=== PATIENT | male | born 1940 | race Caucasian/White ===

== ENCOUNTER 2017-06-05 11:54 | Observation (INO) | payer OTHER ==
[~2017-06-05 11:54] MED LIST: ASPI81TA11 PO; CRES20TA PO; DABI150 PO; METO25 PO; NORC7.5T PO
[2017-06-05 12:03] VITALS: BP 159/47; PULSE 59; RESP 16; TEMP 98.2; O2SAT 98
[2017-06-05 13:01] LABS: BASOPHIL # 0.1 TH/MM3 (0-0.2); BASOPHIL % 0.5 % (0.0-2.0); EOSINOPHIL # 0.2 TH/MM3 (0-0.4); EOSINOPHIL % 1.9 % (0.0-4.0); HEMOGLOBIN 14.8 GM/DL (13.0-17.0); LYMPH % 31.5 % (9.0-44.0); LYMPHOCYTE # 2.9 TH/MM3 (1.0-4.8); MEAN CELL VOLUME 88.4 FL (80.0-100.0); MEAN CORPUSCULAR HEMOGLOBIN 30.3 PG (27.0-34.0); MEAN CORPUSCULAR HGB CONC 34.3 % (32.0-36.0); MEAN PLATELET VOLUME 8.9 FL (7.0-11.0); MONO % 12.1 % (0.0-8.0); MONOCYTE # 1.1 TH/MM3 (0-0.9); PLATELET COUNT 204 TH/MM3 (150-450); RED BLOOD COUNT 4.86 MIL/MM3 (4.50-5.90); WHITE BLOOD COUNT 9.3 TH/MM3 (4.0-11.0)
--- NOTE | 2017-06-05 13:03 | RADRPT ---
EXAM DATE/TIME: 06/05/2017 12:26 [facility] COMPARISON: No previous studies available for comparison. INDICATIONS : Chest pain and dizziness. MEDICAL HISTORY : High blood pressure SURGICAL HISTORY : Triple bypass. ENCOUNTER: Initial ACUITY: 1 day PAIN SCORE: 2/10 LOCATION: Bilateral chest FINDINGS: PA and lateral views of the chest demonstrate postoperative median sternotomy. Tortuous aorta. Previo us right shoulder joint replacement. Minimal basal atelectasis or scarring. CONCLUSION: 1. No active disease. Tevin Vazquez MD on June 05, 2017 at 12:59 Board Certified Radiologist. This report was verified electronically.
--- NOTE | 2017-06-05 13:20 | PD ---
HPI Chief Complaint: Cardiac Complaint Time Seen by Provider: 12:25 Travel History International Travel<30 days: No Contact w/Intl Traveler<30days: No Traveled to known affect area: No History of Present Illness HPI Patient is a 76-year-old male presenting to the emergency department for evaluation of headache, blurry vision, chest pain. Patient states at approximately 1045 this morning he was at the [place] [facility] at a seminar when he developed an abrupt onset of blurry vision, headache which he states was behind his right eye. He also reported a brief episode of chest pain. He does have a history of angina but did not take any nitroglycerin. He denies any shortness of breath, diaphoresis, nausea, vomiting, abdominal pain. Symptom onset was sudden, symptoms severity was moderate, symptoms currently are resolved. Past medical history significant for angina, hypertension, hyperlipidemia. Patient denies any alcohol use or tobacco use. PFSH Past Medical History Hx Anticoagulant Therapy: Yes Arthritis: Yes Atrial Fibrillation: Yes Heart Rhythm Problems: Yes Cardiac Catheterization: Yes Cardiovascular Problems: Yes High Cholesterol: Yes Chest Pain: Yes Coronary Artery Disease: Yes Diminished Hearing: Yes (BILATERAL HEARING AIDES) GERD: Yes Hypertension: Yes Kidney Stones: Yes Musculoskeletal: Yes (BACK ) Immunizations Current: Yes Pneumonia: Yes Past Surgical History Abdominal Surgery: Yes (RIGHT INGUINAL) Cardiac Surgery: Yes (RF ABLATION) Coronary Artery Bypass Graft: Yes (X3 IN 2005) Coronary Stent: Yes (X2) Tonsillectomy: Yes Tympanostomy Tube: Yes Other Surgery: Yes (penile implant 09/14/2015) Social History Alcohol Use: No Tobacco Use: No Substance Use: No Allergies-Medications (Allergen,Severity, Reaction): Coded Allergies: Sulfa (Sulfonamide Antibiotics) (Unverified Allergy, Severe, RASH, 11/11/16 ) Reported Meds & Prescriptions Reported Meds & Active Scripts Active Browning 7.5-325 mg (Hydrocodone-Acetaminophen 7.5-325 mg) 1 Tab 1 Tab PO Q6H PRN Reported Aspirin EC 81 mg (Aspirin) 81 Mg Tab 81 Mg PO DAILY Crestor (Rosuvastatin Calcium) 20 Mg Tab 10 Mg PO DAILY Pradaxa 150 Mg Cap (Dabigatran) 150 Mg Cap 150 Mg PO BID Metoprolol Tartrate 25 mg (Metoprolol Tartrate) 25 Mg Tab 12.5 Mg PO BID Review of Systems Except as stated in HPI: all other systems reviewed are Neg Eyes: Positive: Blurred Vision HENT: Positive: Headaches Cardiovascular: Positive: Chest Pain or Discomfort Respiratory: No: Shortness of Breath Gastrointestinal: No: Nausea, Abdominal Pain Physical Exam Narrative GENERAL: Well-developed, well-nourished, alert male. Presenting in no acute distress. SKIN: Warm and dry. HEAD: Atraumatic. Normocephalic. EYES: Pupils equal and round. No scleral icterus. No injection or drainage. ENT: No nasal bleeding or discharge. Mucous membranes pink and moist. NECK: Trachea midline. No JVD. CARDIOVASCULAR: Regular rate and irregular rhythm. RESPIRATORY: No accessory muscle use. Clear to auscultation. Breath sounds equal bilaterally. GASTROINTESTINAL: Abdomen soft, non-tender, nondistended. Hepatic and splenic margins not palpable. MUSCULOSKELETAL: Extremities without clubbing, cyanosis, or edema. No obvious deformities. NEUROLOGICAL: Awake and alert. No obvious cranial nerve deficits. Motor grossly within normal limits. Five out of 5 muscle strength in the arms and legs. Normal speech. PSYCHIATRIC: Appropriate mood and affect; insight and judgment normal. Data Data Last Documented VS Vital Signs Date Time Temp Pulse Resp B/P (MAP) Pulse Ox O2 Delivery O2 Flow Rate FiO2 06/05/17 12:03 98.2 59 16 159/47 (84) 98 Orders Orders Electrocardiogram (06/05/17 12:11) Complete Blood Count With Diff (06/05/17 12:11) Basic Metabolic Panel (Bmp) (06/05/17 12:11) Ckmb (Isoenzyme) Profile (06/05/17 12:11) Troponin I (06/05/17 12:11) Iv Access Insert/Monitor (06/05/17 12:11) Ecg Monitoring (06/05/17 12:11) Oxygen Administration (06/05/17 12:11) Oximetry (06/05/17 12:11) Act Partial Throm Time (Ptt) (06/05/17 12:11) Prothrombin Time / Inr (Pt) (06/05/17 12:11) Chest, Pa & Lat (06/05/17 12:11) Ct Brain W/O Iv Contrast(Rout) (06/05/17 ) Hepatic Functional Panel (06/05/17 12:30) Lipase (06/05/17 12:30) Admit Order (Ed Use Only) (06/05/17 15:24) Labs Laboratory Tests Test 06/05/17 12:30 06/05/17 13:20 White Blood Count 9.3 TH/MM3 Red Blood Count 4.86 MIL/MM3 Hemoglobin 14.8 GM/DL Hematocrit 43.0 % Mean Corpuscular Volume 88.4 FL Mean Corpuscular Hemoglobin 30.3 PG Mean Corpuscular Hemoglobin Concent 34.3 % Red Cell Distribution Width 14.0 % Platelet Count 204 TH/MM3 Mean Platelet Volume 8.9 FL Neutrophils (%) (Auto) 54.0 % Lymphocytes (%) (Auto) 31.5 % Monocytes (%) (Auto) 12.1 % Eosinophils (%) (Auto) 1.9 % Basophils (%) (Auto) 0.5 % Neutrophils # (Auto) 5.0 TH/MM3 Lymphocytes # (Auto) 2.9 TH/MM3 Monocytes # (Auto) 1.1 TH/MM3 Eosinophils # (Auto) 0.2 TH/MM3 Basophils # (Auto) 0.1 TH/MM3 CBC Comment DIFF FINAL Differential Comment Prothrombin Time 13.5 SEC Prothromb Time International Ratio 1.3 RATIO Activated Partial Thromboplast Time 40.1 SEC Blood Urea Nitrogen 13 MG/DL Creatinine 0.82 MG/DL Random Glucose 75 MG/DL Total Protein 7.1 GM/DL Albumin 3.3 GM/DL Calcium Level 8.4 MG/DL Alkaline Phosphatase 91 U/L Aspartate Amino Transf (AST/SGOT) 20 U/L Alanine Aminotransferase (ALT/SGPT) 23 U/L Total Bilirubin 0.9 MG/DL Direct Bilirubin 0.2 MG/DL Sodium Level 140 MEQ/L Potassium Level 4.3 MEQ/L Chloride Level 105 MEQ/L Carbon Dioxide Level 27.7 MEQ/L Anion Gap 7 MEQ/L Estimat Glomerular Filtration Rate 92 ML/MIN Indirect Bilirubin 0.7 MG/DL Total Creatine Kinase 65 U/L Troponin I LESS THAN 0.02 NG/ML Lipase 119 U/L MDM Medical Decision Making Medical Screen Exam Complete: Yes Emergency Medical Condition: Yes Interpretation(s) Laboratory Tests Test 06/05/17 12:30 06/05/17 13:20 White Blood Count 9.3 TH/MM3 Red Blood Count 4.86 MIL/MM3 Hemoglobin 14.8 GM/DL Hematocrit 43.0 % Mean Corpuscular Volume 88.4 FL Mean Corpuscular Hemoglobin 30.3 PG Mean Corpuscular Hemoglobin Concent 34.3 % Red Cell Distribution Width 14.0 % Platelet Count 204 TH/MM3 Mean Platelet Volume 8.9 FL Neutrophils (%) (Auto) 54.0 % Lymphocytes (%) (Auto) 31.5 % Monocytes (%) (Auto) 12.1 % Eosinophils (%) (Auto) 1.9 % Basophils (%) (Auto) 0.5 % Neutrophils # (Auto) 5.0 TH/MM3 Lymphocytes # (Auto) 2.9 TH/MM3 Monocytes # (Auto) 1.1 TH/MM3 Eosinophils # (Auto) 0.2 TH/MM3 Basophils # (Auto) 0.1 TH/MM3 CBC Comment DIFF FINAL Differential Comment Prothrombin Time 13.5 SEC Prothromb Time International Ratio 1.3 RATIO Activated Partial Thromboplast Time 40.1 SEC Blood Urea Nitrogen 13 MG/DL Creatinine 0.82 MG/DL Random Glucose 75 MG/DL Total Protein 7.1 GM/DL Albumin 3.3 GM/DL Calcium Level 8.4 MG/DL Alkaline Phosphatase 91 U/L Aspartate Amino Transf (AST/SGOT) 20 U/L Alanine Aminotransferase (ALT/SGPT) 23 U/L Total Bilirubin 0.9 MG/DL Direct Bilirubin 0.2 MG/DL Sodium Level 140 MEQ/L Potassium Level 4.3 MEQ/L Chloride Level 105 MEQ/L Carbon Dioxide Level 27.7 MEQ/L Anion Gap 7 MEQ/L Estimat Glomerular Filtration Rate 92 ML/MIN Indirect Bilirubin 0.7 MG/DL Total Creatine Kinase 65 U/L Troponin I LESS THAN 0.02 NG/ML Lipase 119 U/L Vital Signs Date Time Temp Pulse Resp B/P (MAP) Pulse Ox O2 Delivery O2 Flow Rate FiO2 06/05/17 12:03 98.2 59 16 159/47 (84) 98 Vital Signs Date Time Temp Pulse Resp B/P (MAP) Pulse Ox O2 Delivery O2 Flow Rate FiO2 06/05/17 12:03 98.2 59 16 159/47 (84) 98 Differential Diagnosis [place] versus ACS versus TIA versus CVA versus other Narrative Course Patient is a 76-year-old male presenting for evaluation of possible TIA/chest pain. Patient's vital signs are stable. Initial EKG shows sinus bradycardia with a rate of 59 with occasional PVCs. Patient no focal deficits on exam at this time. Labs and imaging ordered and pending. CT the brain is negative for acute findings CBC is unremarkable Chemistry with no acute findings Cardiac enzymes are negative 1 set Chest x-ray shows no acute disease Discussed findings and my attending physician. Symptomology appears consistent with a TIA, patient will be admitted under observation. Discussed with Dr. Umana who accepted admit. Admit orders placed. Patient is agreeable. Diagnosis Primary Impression: TIA (transient ischemic attack) Qualified Codes: G45.9 - Transient cerebral ischemic attack, unspecified Admitting Information Admitting Physician Requests: Observation Condition: Stable Bridgett Mendez Jun 05, 2017 13:20
[2017-06-05 13:49] LABS: INTERNATIONAL NORMALIZED RATIO 1.3 RATIO; PROTHROMBIN TIME - PATIENT 13.5 SEC (9.8-11.6)
[2017-06-05 13:59] LABS: ALBUMIN 3.3 GM/DL (3.4-5.0); AST (GOT) 20 U/L (15-37); BICARBONATE 27.7 MEQ/L (21.0-32.0); BLOOD UREA NITROGEN 13 MG/DL (7-18); CALCIUM 8.4 MG/DL (8.5-10.1); CHLORIDE 105 MEQ/L (98-107); CREATININE 0.82 MG/DL (0.60-1.30); GLOMERULAR FILTRATION RATE 92 ML/MIN (>89); GLUCOSE,RANDOM 75 MG/DL (74-106); SODIUM (NA) 140 MEQ/L (136-145)
[2017-06-05 14:04] LABS: ALKALINE PHOSPHATASE 91 U/L (45-117); ALT (GPT) 23 U/L (12-78); DIRECT BILIRUBIN ADULT 0.2 MG/DL (0.0-0.2); INDIRECT BILIRUBIN 0.7 MG/DL (0.0-0.8); TOTAL BILIRUBIN ADULT 0.9 MG/DL (0.2-1.0); TOTAL PROTEIN 7.1 GM/DL (6.4-8.2); TROPONIN I LESS THAN 0.02 NG/ML (0.02-0.05)
--- NOTE | 2017-06-05 14:31 | RADRPT ---
EXAM DATE/TIME: 06/05/2017 13:56 [facility] COMPARISON: No previous studies available for comparison. INDICATIONS : Dizziness, blurred vision and hypertension. RADIATION DOSE: 56.35 CTDIvol (mGy) MEDICAL HISTORY : Cardiovascular disease. Hypertension. SURGICAL HISTORY : CABG ENCOUNTER: Initial ACUITY: 1 day PAIN SCALE: 0/10 LOCATION: cranial TECHNIQUE: Multiple contiguous axial images were obtained of the head. Using automated exposure control and adj ustment of the mA and/or kV according to patient size, radiation dose was kept as low as reasonably a chievable to obtain optimal diagnostic quality images. DICOM format image data is available electro nically for review and comparison. FINDINGS: CEREBRUM: The ventricles are normal for age. No evidence of midline shift, mass lesion, hemorrhage or acute in farction. No extra-axial fluid collections are seen. POSTERIOR FOSSA: The cerebellum and brainstem are intact. The 4th ventricle is midline. The cerebellopontine angle i s unremarkable. EXTRACRANIAL: The visualized portion of the orbits is intact. SKULL: The calvaria is intact. No evidence of skull fracture. CONCLUSION: Negative for acute process Андрей Peugero MD FACR on June 05, 2017 at 14:29 Board Certified Radiologist. This report was verified electronically.
[2017-06-05] MEDS ORDERED: GLUCAGON 1 MG/ML VIAL OTHER PRN (16:00)
[2017-06-05] MEDS ORDERED: ACETAMINOPHEN/HYDROcodone 325 MG/7.5 MG TAB PO PRN (16:00)
[2017-06-05] MEDS ORDERED: SODIUM CHLORIDE 0.9% FLUSH 10 ML FLUSH IV FLUSH PRN (16:00)
[2017-06-05] MEDS ORDERED: ENOXAPARIN SODIUM 40 MG/0.4 ML SYRINGE SQ SCH (16:00)
[2017-06-05] MEDS ORDERED: DEXTROSE 50% IN WATER 50 ML VIAL(D50) IV PUSH PRN (16:00)
[2017-06-05] MEDS: INSULIN ASPART SUPPLEMENTAL SCALE SQ SCH ×2 (16:55→21:00)
[2017-06-05 17:00] VITALS: BP 168/87; PULSE 65; RESP 18; TEMP 97; O2SAT 100
--- NOTE | 2017-06-05 17:08 | HHI.HP ---
HPI Service [facility] Hospitalists Primary Care Physician [facility] Admission Diagnosis TIA Diagnoses: Chief Complaint: Blurry vision Headache Pain behind his eyes Travel History International Travel<30 Days: No Contact w/Intl Traveler <30 Da: No Traveled to Known Affected Are: No History of Present Illness Written by Martine Saeed, acting as scribe for Dr. Umana on 06/05/17 at 17:07. This is a 76yo male with PMHX of CAD s/p CABG, HTN, atrial fibrillation, HLD and GERD who presents to [facility] ED with complaints of blurry vision, headache and pain behind his eyes x 1 day. Patient [place] when he developed sudden onset of blurry vision and pain behind his eyes. After about 20minutes, he got up and experienced difficulty with ambulation, staggering and stumbling around "like he was drunk". His blood pressure was 180/102. He reports brief episode of chest pain. He denies any associated shortness of breath, diaphoresis, nausea, vomiting or abdominal pain. He reports increased stress at home due to financial issues and relationship problems. Patient states his symptoms have now resolved. He denies any complaints of blurry vision. Denies any headaches. He denies any difficulty swallowing. He is very focused on getting something to eat. Review of Systems Except as stated in HPI: all other systems reviewed are Neg Past Family Social History Past Medical History Hypertension Atrial fibrillation CAD s/p CABG Dyslipidemia GERD Hx of Kidney stones Past Surgical History CABG x 3, 2005 cardiac stents Bilateral shoulder replacements Cardiac ablation Tonsillectomy Cardiac stents Penile implant 2016 Right inguinal hernia repair Reported Medications Reported Meds & Active Scripts Active Walton 7.5-325 mg (Hydrocodone-Acetaminophen 7.5-325 mg) 1 Tab 1 Tab PO Q6H PRN Reported Aspirin EC 81 mg (Aspirin) 81 Mg Tab 81 Mg PO DAILY Crestor (Rosuvastatin Calcium) 20 Mg Tab 10 Mg PO DAILY Pradaxa 150 Mg Cap (Dabigatran) 150 Mg Cap 150 Mg PO BID Metoprolol Tartrate 25 mg (Metoprolol Tartrate) 25 Mg Tab 12.5 Mg PO BID Allergies: Coded Allergies: Sulfa (Sulfonamide Antibiotics) (Unverified Allergy, Severe, RASH, 11/11/16 ) Active Ordered Medications Current Medications Medications (Trade) Dose Ordered Sig/Stephanie Route Start Time Stop Time Status Last Admin (NS Flush) 2 ml BID IV FLUSH 06/05/17 21:00 (NS Flush) 2 ml UNSCH PRN IV FLUSH 06/05/17 16:00 (Lipitor) 10 mg HS PO 06/05/17 21:00 (NovoLOG SUPPLEMENTAL SCALE) 1 ACHS SQ 06/05/17 17:00 (D50w (Vial) Inj) 50 ml UNSCH PRN IV PUSH 06/05/17 16:00 (Glucagon Inj) 1 mg UNSCH PRN OTHER 06/05/17 16:00 (Lovenox Inj) 40 mg Q24H SQ 06/05/17 16:00 06/05/17 16:56 (Ecotrin Ec) 81 mg DAILY PO 06/06/17 09:00 UNV (Pradaxa) 150 mg BID PO 06/05/17 21:00 UNV (Walton 7.5-325 Mg) 1 tab Q6H PRN PO 06/05/17 16:00 UNV (Lopressor) 12.5 mg BID PO 06/05/17 21:00 UNV Non-Formulary Medication 10 mg DAILY PO 06/06/17 09:00 UNV Family History Dad, [place] x 4 Mother, CAD, CABG x 4 2 uncles, stroke Social History Patient denies any tobacco use, alcohol consumption or illicit drug use. Physical Exam Vital Signs Vital Signs Date Time Temp Pulse Resp B/P (MAP) Pulse Ox O2 Delivery O2 Flow Rate FiO2 06/05/17 12:03 98.2 59 16 159/47 (84) 98 Physical Exam GENERAL: This is a well-nourished, well-developed male patient, in no apparent distress. Awake and alert. SKIN: No rashes, ecchymoses or lesions. Cool and dry. HEAD: Atraumatic. Normocephalic. No temporal or scalp tenderness. EYES: Pupils equal round and reactive. Extraocular motions intact. No scleral icterus. No injection or drainage. ENT: Nose without bleeding or purulent drainage. Throat without erythema, tonsillar hypertrophy or exudate. Uvula midline. Airway patent. NECK: Trachea midline. No lymphadenopathy. Supple, nontender, no meningeal signs. CARDIOVASCULAR: Regular rate and rhythm without murmurs, gallops, or rubs. RESPIRATORY: Clear to auscultation. Breath sounds equal bilaterally. No wheezes , rales, or rhonchi. GASTROINTESTINAL: Abdomen soft, non-tender, nondistended. No hepato-splenomegaly , or palpable masses. No guarding. MUSCULOSKELETAL: Extremities without clubbing, cyanosis, or edema. No joint tenderness, effusion, or edema noted. No calf tenderness. NEUROLOGICAL: Awake and alert. Cranial nerves II through XII intact. Motor and sensory grossly within normal limits. Five out of 5 muscle strength in all muscle groups. Normal speech. Laboratory Laboratory Tests Test 06/05/17 12:30 06/05/17 13:20 White Blood Count 9.3 Red Blood Count 4.86 Hemoglobin 14.8 Hematocrit 43.0 Mean Corpuscular Volume 88.4 Mean Corpuscular Hemoglobin 30.3 Mean Corpuscular Hemoglobin Concent 34.3 Red Cell Distribution Width 14.0 Platelet Count 204 Mean Platelet Volume 8.9 Neutrophils (%) (Auto) 54.0 Lymphocytes (%) (Auto) 31.5 Monocytes (%) (Auto) 12.1 Eosinophils (%) (Auto) 1.9 Basophils (%) (Auto) 0.5 Neutrophils # (Auto) 5.0 Lymphocytes # (Auto) 2.9 Monocytes # (Auto) 1.1 Eosinophils # (Auto) 0.2 Basophils # (Auto) 0.1 CBC Comment DIFF FINAL Differential Comment Prothrombin Time 13.5 Prothromb Time International Ratio 1.3 Activated Partial Thromboplast Time 40.1 Blood Urea Nitrogen 13 Creatinine 0.82 Random Glucose 75 Total Protein 7.1 Albumin 3.3 Calcium Level 8.4 Alkaline Phosphatase 91 Aspartate Amino Transf (AST/SGOT) 20 Alanine Aminotransferase (ALT/SGPT) 23 Total Bilirubin 0.9 Direct Bilirubin 0.2 Sodium Level 140 Potassium Level 4.3 Chloride Level 105 Carbon Dioxide Level 27.7 Anion Gap 7 Estimat Glomerular Filtration Rate 92 Indirect Bilirubin 0.7 Total Creatine Kinase 65 Troponin I LESS THAN 0.02 Lipase 119 Result Diagram: 06/05/17 1230 06/05/17 1320 Imaging Last Impressions Chest X-Ray 06/05/17 1211 Signed Impressions: Service Date/Time: Monday, June 05, 2017 12:26 - CONCLUSION: 1. No active disease. Tevin Vazquez MD Head CT 06/05/17 0000 Signed Impressions: Service Date/Time: Monday, June 05, 2017 13:56 - CONCLUSION: Negative for acute process Андрей Peguero MD FACR Caprini VTE Risk Assessment Caprini VTE Risk Assessment: Mod/High Risk (score >= 2) Caprini Risk Assessment Model Point Value = 1 Point Value = 2 Point Value = 3 Point Value = 5 Age 41-60 Minor surgery BMI > 25 kg/m2 Swollen legs Varicose veins or History of unexplained or recurrent spontaneous Oral contraceptives or hormone replacement Sepsis (< 1 month) Serious lung disease, including pneumonia (< 1 month) Abnormal pulmonary function Acute myocardial infarction Congestive heart failure (< 1 month) History of inflammatory bowel disease Medical patient at bed rest Age 61-74 Arthroscopic surgery Major open surgery (> 45 min) Laparoscopic surgery (> 45 min) Malignancy Confined to bed (> 72 hours) Immobilizing plaster cast Central venous access Age >= 75 History of VTE Family history of VTE Factor V Leiden Prothrombin [id number] Lupus anticoagulant Anticardiolipin antibodies Elevated serum homocysteine Heparin-induced thrombocytopenia Other congenital or acquired thrombophilia Stroke (< 1 month) Elective arthroplasty Hip, pelvis, or leg fracture Acute spinal cord injury (< 1 month) Prophylaxis Regimen Total Risk Factor Score Risk Level Prophylaxis Regimen 0-1 Low Early ambulation 2 Moderate Order ONE of the following: *Sequential Compression Device (SCD) *Heparin 5000 units SQ BID 3-4 Higher Order ONE of the following medications: *Heparin 5000 units SQ TID *Enoxaparin/Lovenox 40 mg SQ daily (WT < 150 kg, CrCl > 30 mL/min) *Enoxaparin/Lovenox 30 mg SQ daily (WT < 150 kg, CrCl > 10-29 mL/min) *Enoxaparin/Lovenox 30 mg SQ BID (WT < 150 kg, CrCl > 30 mL/min) AND/OR *Sequential Compression Device (SCD) 5 or more Highest Order ONE of the following medications: *Heparin 5000 units SQ TID (Preferred with Epidurals) *Enoxaparin/Lovenox 40 mg SQ daily (WT < 150 kg, CrCl > 30 mL/min) *Enoxaparin/Lovenox 30 mg SQ daily (WT < 150 kg, CrCl > 10-29 mL/min) *Enoxaparin/Lovenox 30 mg SQ BID (WT < 150 kg, CrCl > 30 mL/min) AND *Sequential Compression Device (SCD) Assessment and Plan Assessment and Plan 76yo male with PMHX of CAD s/p CABG, HTN, atrial fibrillation, HLD and GERD who presents to [facility] ED with complaints of blurry vision, headache, unsteady gait and pain behind his eyes x 1 day. TIA -CT brain for acute findings, images reviewed by me -Consult stroke navigator -Continuous cardiac monitoring -Aspirin and statin therapy daily -Neuro checks -PT/OT eval/tx -Nursing bedside swallow evaluation -blood sugar monitoring -obtain lipid profile and hemoglobin A1c -Holter monitor -MRI brain and carotid US ordered -Obtain 2-D echocardiogram Chest pain Hx of CAD s/p CABG -EKG shows sinus bradycardia with occasional PVCs -initial troponin 0.02, continue to trend Rafaela -CXR shows no acute disease, images reviewed by me -continuous cardiac monitoring HTN, [facility] -improved -resume home BB -monitor BP and adjust treatment accordingly Atrial fibrillation Rate controlled -Resume home dose of Pradaxa 150 mg twice a day and metoprolol 12.5 mg twice a day -Continue to monitor heart rate DVT prophylaxis -Lovenox subcutaneous This note was transcribed by ANDREW Urena . I, Dr. lIa Umana personally performed the history, physical exam, and medical decision making; and confirmed the accuracy of the information in the transcribed note. Authenticated by Dr. Ila Umana on 06/05/17 at 17:07. Discussed Condition With ED physician, nursing staff, patient Martine Saeed Jun 05, 2017 17:08 Ila Umana MD Jun 05, 2017 18:02
[2017-06-05] MEDS ORDERED: METO25TA3 PO (17:12)
[2017-06-05 20:00] VITALS: BP 149/85; PULSE 53; PULSE 68; PULSE 79; RESP 20; TEMP 98.4; O2SAT 97
[2017-06-05] MEDS: ATORVASTATIN 10 MG TAB PO SCH (21:00)
[2017-06-05] MEDS: METOPROLOL TARTRATE 25 MG TAB PO SCH (21:31)
[2017-06-05] MEDS: SODIUM CHLORIDE 0.9% FLUSH 10 ML FLUSH IV FLUSH SCH (21:32)
[2017-06-05 21:51] VITALS: BP 155/82; PULSE 72; RESP 18; TEMP 98.4; O2SAT 99
--- NOTE | 2017-06-05 22:08 | RADRPT ---
EXAM DATE/TIME: 06/05/2017 21:01 [facility] COMPARISON: No previous studies available for comparison. INDICATIONS : Cerebrovascular accident. MEDICAL HISTORY : Hypercholesterolemia. Hypertension. Gastroesophageal reflux disease. Hearing loss. Coronary artery di sease. Anticoagulant therapy. Afib. Pneumonia. Sleep apnea. Kidney stones. Arthritis. Substance use. SURGICAL HISTORY : Tonsillectomy. CABG. Coronary artery stent. Tympanostomy tube. Cardiac ablation. Right inguinal herni a repair. Bilateral hip replacements.. Bilateral shoulder surgery. Penile implant. ENCOUNTER: Initial ACUITY: 1 day PAIN SCORE: 0/10 LOCATION: Bilateral neck PEAK SYSTOLIC VELOCITIES (cm/sec): ICA/CCA RATIO: Right: 1.2 Left: 0.7 ICA: Right: 91 Left: 69 CCA: Right: 76 Left: 97 ECA: Right: 116 Left: 78 VERTEBRAL: Right: 32 antegrade Left: 39 antegrade Elevated flow velocities and ICA/CCA ratios have been found to correlate with increased degrees of vessel stenosis, calculated as percentage of diameter relative to a normal segment of distal ICA/CCA FINDINGS: RIGHT CAROTID: Prominent calcified plaque in the distal common carotid and carotid bulb.. The waveforms are within normal limits. LEFT CAROTID: Mild calcified plaque in the distal common carotid artery. No significant stenosis is visualized. T he waveforms are within normal limits. VERTEBRAL ARTERIES: Antegrade flow is seen in both vertebral arteries. MISCELLANEOUS: None. CONCLUSION: Bilateral calcified carotid plaques with hemodynamic profile characteristic of less than 50% stenosis . Valerio Judd MD on June 05, 2017 at 22:04 Board Certified Radiologist. This report was verified electronically.
[2017-06-05] MEDS: DABIGATRAN ETEXILATE 150 MG CAP PO SCH (22:30)
[2017-06-05 22:47] LABS: HEMOGLOBIN A1C 5.8 % (4.3-6.0)
[2017-06-05 23:56] VITALS: BP 126/78; PULSE 62; RESP 18; TEMP 98.2; O2SAT 95
[2017-06-06] VITALS (8 sets, daily range): BP systolic 134–170; BP diastolic 77–102; PULSE 56–73; RESP 18; TEMP 96.7–98.4; O2SAT 96–98
[2017-06-06 02:54] LABS: AUTOMATED NEUTROPHIL # 2.8 TH/MM3 (1.8-7.7); BASOPHIL % 0.7 % (0.0-2.0); EOSINOPHIL # 0.2 TH/MM3 (0-0.4); EOSINOPHIL % 2.9 % (0.0-4.0); HEMATOCRIT 40.4 % (39.0-51.0); HEMOGLOBIN 13.9 GM/DL (13.0-17.0); LYMPH % 35.7 % (9.0-44.0); LYMPHOCYTE # 2.1 TH/MM3 (1.0-4.8); MEAN CELL VOLUME 87.5 FL (80.0-100.0); MEAN CORPUSCULAR HEMOGLOBIN 30.1 PG (27.0-34.0); MEAN CORPUSCULAR HGB CONC 34.4 % (32.0-36.0); MEAN PLATELET VOLUME 8.7 FL (7.0-11.0); MONO % 11.9 % (0.0-8.0); MONOCYTE # 0.7 TH/MM3 (0-0.9); NEUT % 48.8 % (16.0-70.0); PLATELET COUNT 165 TH/MM3 (150-450); RED BLOOD COUNT 4.61 MIL/MM3 (4.50-5.90); RED CELL DISTRIBUTION WIDTH 13.9 % (11.6-17.2); WHITE BLOOD COUNT 5.8 TH/MM3 (4.0-11.0)
[2017-06-06 03:10] LABS: BICARBONATE 32.6 MEQ/L (21.0-32.0); BLOOD UREA NITROGEN 14 MG/DL (7-18); CALCIUM 8.6 MG/DL (8.5-10.1); CHLORIDE 104 MEQ/L (98-107); CHOLESTEROL 93 MG/DL (120-200); CREATININE 0.94 MG/DL (0.60-1.30); GLOMERULAR FILTRATION RATE 78 ML/MIN (>89); GLUCOSE,RANDOM 80 MG/DL (74-106); SODIUM (NA) 142 MEQ/L (136-145); TRIGLYCERIDES 84 MG/DL (42-150)
[2017-06-06 03:13] LABS: CHOLESTEROL/ HDL RATIO 2.69 RATIO; HDL CHOLESTEROL 34.5 MG/DL (40.0-60.0); LDL CHOLESTEROL 42 MG/DL (0-99); TROPONIN I LESS THAN 0.02 NG/ML (0.02-0.05)
[2017-06-06] MEDS: INSULIN ASPART SUPPLEMENTAL SCALE SQ SCH ×4 (08:00→21:00)
--- NOTE | 2017-06-06 08:51 | RADRPT ---
EXAM DATE/TIME: 06/06/2017 08:03 [facility] COMPARISON: No previous studies available for comparison. INDICATIONS : Aphasia. Blurred vision. MEDICAL HISTORY : Hypertension. SURGICAL HISTORY : CABG Cardiac ablation. Bilateral hip replacement.Right shoulder replacement. ENCOUNTER: Initial ACUITY: 2 day PAIN SCORE: 0/10 LOCATION: cranial TECHNIQUE: Multiplanar, multisequence MRI of the brain was performed without contrast. FINDINGS: CEREBRUM: The ventricles are normal for age. No evidence of midline shift, mass lesion, hemorrhage or acute in farction. No extraaxial fluid collections are seen. The pituitary gland and suprasellar cistern are normal in configuration. WHITE MATTER: Moderate signal abnormalities are seen in the white matter. POSTERIOR FOSSA: The cerebellum and brainstem are intact. The 4th ventricle is midline. The cerebellopontine angle is unremarkable. The cerebellar tonsils are normal in position. DIFFUSION IMAGING: No focal areas of restricted diffusion are seen. No evidence of acute infarction. EXTRACRANIAL: The visualized portions of the orbits and paranasal sinuses are unremarkable. CONCLUSION: 1. Moderate T2 hyperintense changes throughout the cerebral white matter characteristic of chronic mi crovascular ischemic disease. 2. No evidence of acute infarct, hemorrhage, mass or edema. Nikunj Yañez MD on June 06, 2017 at 8:46 Board Certified Radiologist. This report was verified electronically.
[2017-06-06] MEDS ORDERED: ASPIRIN 81 MG CHEW TAB PO SCH (09:00)
[2017-06-06] MEDS: DABIGATRAN ETEXILATE 150 MG CAP PO SCH (10:13)
[2017-06-06] MEDS: ATORVASTATIN 20 MG TAB PO SCH (10:14)
[2017-06-06] MEDS: ASPIRIN EC 81 MG TABEC PO SCH (10:14)
[2017-06-06] MEDS: METOPROLOL TARTRATE 25 MG TAB PO SCH (10:14)
[2017-06-06] MEDS: SODIUM CHLORIDE 0.9% FLUSH 10 ML FLUSH IV FLUSH SCH (10:15)
--- NOTE | 2017-06-06 10:54 | HHI.PR ---
Subjective Remarks F/u TIA. Patient with no complaints. Symptoms resolved. He adds that he was off Pradaxa for 1 week just restarted it 3 days ago after a bout of hematochezia was seen in the ED and told he had hemorrhoidal bleeding. His PCP will be arranging colonoscopy. Discussed with nursing Objective Vitals Vital Signs Date Time Temp Pulse Resp B/P (MAP) Pulse Ox O2 Delivery O2 Flow Rate FiO2 06/06/17 09:53 98.4 64 18 170/77 (108) 98 06/06/17 03:38 98.1 73 18 166/95 (118) 96 06/05/17 23:56 98.2 62 18 126/78 (94) 95 06/05/17 21:51 98.4 72 18 155/82 (106) 99 06/05/17 20:00 Room Air 06/05/17 20:00 98.4 68 20 149/85 (106) 97 06/05/17 20:00 79 06/05/17 20:00 Room Air 06/05/17 20:00 53 06/05/17 17:00 97.0 65 18 168/87 (114) 100 06/05/17 12:03 98.2 59 16 159/47 (84) 98 I/O 06/05/17 06/05/17 06/05/17 06/06/17 06/06/17 06/06/17 07:00 15:00 23:00 07:00 15:00 23:00 Output Total 876 ml Balance -876 ml Output Urine Total 876 ml Result Diagram: 06/06/17 0207 06/06/17 0207 Imaging Last Impressions Brain MRI 06/06/17 0000 Signed Impressions: Service Date/Time: Tuesday, June 06, 2017 08:03 - CONCLUSION: 1. Moderate T2 hyperintense changes throughout the cerebral white matter characteristic of chronic microvascular ischemic disease. 2. No evidence of acute infarct, hemorrhage, mass or edema. Nikunj Yañez MD Chest X-Ray 06/05/17 1211 Signed Impressions: Service Date/Time: Monday, June 05, 2017 12:26 - CONCLUSION: 1. No active disease. Tevin Vazquez MD Head CT 06/05/17 0000 Signed Impressions: Service Date/Time: Monday, June 05, 2017 13:56 - CONCLUSION: Negative for acute process Андрей G. Miles, MD FACR Carotid Artery Ultrasound 06/05/17 0000 Signed Impressions: Service Date/Time: Monday, June 05, 2017 21:01 - CONCLUSION: Bilateral calcified carotid plaques with hemodynamic profile characteristic of less than 50%% stenosis. Valerio Judd MD Objective Remarks GENERAL: This is a well-nourished, well-developed male patient, in no apparent distress. SKIN: No rashes, ecchymoses or lesions. Cool and dry. CARDIOVASCULAR: Regular rate and rhythm without murmurs, gallops, or rubs. RESPIRATORY: Clear to auscultation. Breath sounds equal bilaterally. No wheezes , rales, or rhonchi. GASTROINTESTINAL: Abdomen soft, non-tender, nondistended. . No guarding. MUSCULOSKELETAL: Extremities without clubbing, cyanosis, or edema. No joint tenderness, effusion, or edema noted. No calf tenderness. NEUROLOGICAL: Awake and alert. Cranial nerves II through XII intact. Motor and sensory grossly within normal limits. Five out of 5 muscle strength in all muscle groups. Normal speech. Procedures none A/P Problem List: (1) TIA (transient ischemic attack) ICD Code: G45.9 - Transient cerebral ischemic attack, unspecified Status: Acute Assessment and Plan 76yo male with PMHX of CAD s/p CABG, HTN, atrial fibrillation, HLD and GERD who presents to [facility] ED with complaints of blurry vision, headache, unsteady gait and pain behind his eyes x 1 day. TIA. He adds that he was off Pradaxa for 1 week just restarted it 3 days ago after a bout of hematochezia -CT brain for acute findings, images reviewed by me -Consulted stroke navigator -Continuous cardiac monitoring -Aspirin and statin therapy daily -Neuro checks -PT/OT eval/tx -blood sugar monitoring -Risk factor modification LDL 43 A1c 5.8 -Holter monitor -Obtain 2-D echocardiogram Chest pain likely related to anxiety Hx of CAD s/p CABG -EKG shows sinus bradycardia with occasional PVCs -Ruled out for [place]. Negative stress test 2 weeks ago -CXR shows no acute disease, images reviewed by me -continuous cardiac monitoring HTN, uncontrolled BP 180/[address] earlier today when symptomatic -improved -resume home BB -monitor BP and adjust treatment accordingly Atrial fibrillation Rate controlled -Resume home dose of Pradaxa 150 mg twice a day and metoprolol 12.5 mg twice a day -Continue to monitor heart rate GIB. He was off Pradaxa for 1 week just restarted it 3 days ago after a bout of hematochezia was seen in the ED and told he had hemorrhoidal bleeding. His PCP will be arranging colonoscopy. DVT prophylaxis -Pradaxa Problem Qualifiers (1) TIA (transient ischemic attack): Qualified Codes: G45.9 - Transient cerebral ischemic attack, unspecified Arron Levy MD Jun 06, 2017 10:54
[2017-06-06] MEDS ORDERED: GADODIAMIDE PF 287 MG/ML 20 ML VIAL (for RAD MRI) IVCONTRAST ONE (14:31)
--- NOTE | 2017-06-06 14:51 | RADRPT ---
EXAM DATE/TIME: 06/06/2017 14:08 [facility] COMPARISON: No previous studies available for comparison. INDICATIONS : Blurred vision. MEDICAL HISTORY : Hypertension. SURGICAL HISTORY : CABG Orthopaedic surgeries. ENCOUNTER: Initial ACUITY: 1 day PAIN SCORE: 0/10 LOCATION: cranial Please note a normal MRA of the brain does not entirely exclude the possibility of a small aneurysm, nor the possibility of distal intracranial vessel disease. TECHNIQUE: 3D time of flight MRA was performed. Source images, multiplanar STS MIP, and 3D volume MIP reconstru ctions were reviewed. FINDINGS: There is excellent visualization of the major intracranial arteries out to the second-order branch ve ssels. There is no evidence for aneurysm, vessel truncation or stenosis, and no evidence for vascula r malformation. Patent bilateral posterior commuting arteries. CONCLUSION: Brain MRA within normal limits. Joseph House MD on June 06, 2017 at 14:48 Board Certified Radiologist. This report was verified electronically.
--- NOTE | 2017-06-06 14:54 | RADRPT ---
EXAM DATE/TIME: 06/06/2017 14:08 [facility] COMPARISON: No previous studies available for comparison. INDICATIONS : Blurred vision. CONTRAST: 20 cc Omniscan (gadodiamide) IV MEDICAL HISTORY : Hypertension. SURGICAL HISTORY : CABG Orthopaedic surgeries. ENCOUNTER: Initial ACUITY: 1 day PAIN SCORE: 0/10 LOCATION: cranial Percent stenosis is calculated using the diameter of the stenotic region over the diameter of the nor mal distal internal carotid artery. TECHNIQUE: Bolus infused MRA of the extracranial circulation was performed using a neurovascular coil. Post pro cessing was performed including rotating subvolume maximum intensity projections of each carotid ge[place] ry, rotating full volume maximum intensity projections of both carotid arteries, sagittal and coronal sliding thin slab reformations of each carotid artery, and left oblique sliding thin slab reformatio n through the aortic arch to include the origin of the arch branch vessels. FINDINGS: AORTIC ARCH: There is a three vessel origin of the great vessels from the aorta. No evidence of ostial narrowing. RIGHT CAROTID: The common carotid artery is intact. The carotid bulb has a normal configuration without ulceration or narrowing. The internal carotid artery lumen is smooth without stenosis. The external carotid ar roya is intact. LEFT CAROTID: The common carotid artery is intact. The carotid bulb has a normal configuration without ulceration or narrowing. The internal carotid artery lumen is smooth without stenosis. The external carotid ar roya is intact. VERTEBRALS: The vertebral arteries have a symmetric diameter. No stenotic lesions are seen. CONCLUSION: Carotid artery CTA within normal limits. Joseph House MD on June 06, 2017 at 14:50 Board Certified Radiologist. This report was verified electronically.
--- NOTE | 2017-06-06 15:41 | ECHRPT ---
Indication: CVA/TIA CONCLUSIONS The left ventricular systolic function is normal with an estimated ejection fraction in the range of 55-60%. Normal left ventricular size. Mild concentric left ventricular hypertrophy. No regional wall motion abnormalities are present. The left atrial size is upper limits of normal. Trace mitral valve regurgitation. Diffuse calcification of the aortic valve. Mild aortic valve stenosis. Aortic valve area is 1.2 cm. Aortic valve mean gradient is 10 mmHg. There is mild tricuspid valve regurgitation. The estimated pulmonary arterial pressure is 67.8 mmHg. There is estimated rwwvcvxu-jz-sajvxl pulmonary hypertension present (range 60-70 mmHg). BP: / HR: Rhythm: Atrial fibrillation MEASUREMENTS (Male / Female) Normal Values Technical Quality:Fair 2D ECHO LV Diastolic Diameter PLAX 4.3 cm 4.2 - 5.9 / 3.9 - 5.3 cm LV Systolic Diameter PLAX 3.0 cm IVS Diastolic Thickness 1.2 cm 0.6 - 1.0 / 0.6 - 0.9 cm LVPW Diastolic Thickness 1.2 cm 0.6 - 1.0 / 0.6 - 0.9 cm LV Relative Wall Thickness 0.6 LVOT Diameter 1.9 cm LA Systolic Diameter LX 4.0 cm 3.0 - 4.0 / 2.7 - 3.8 cm M-MODE Aortic Root Diameter MM 3.3 cm LA Systolic Diameter MM 3.8 cm LA Ao Ratio MM 1.2 AV Cusp Separation MM 1.1 cm DOPPLER AV Peak Velocity 219.3 cm/s AV Peak Gradient 19.2 mmHg AV Mean Gradient 10.0 mmHg AV Velocity Time Integral 42.3 cm LVOT Peak Velocity 81.2 cm/s LVOT Peak Gradient 2.6 mmHg LVOT Velocity Time Integral 17.9 cm AV Area Cont Eq vti 1.2 cm AV Area Cont Eq pk 1.1 cm MV Area PHT 2.0 cm TR Peak Velocity 380.0 cm/s TR Peak Gradient 57.8 mmHg Right Atrial Pressure 10.0 mmHg Pulmonary Artery Systolic Pressu 67.8 mmHg Right Ventricular Systolic Press 67.8 mmHg PV Peak Velocity 124.0 cm/s PV Peak Gradient 6.2 mmHg FINDINGS LEFT VENTRICLE The left ventricular systolic function is normal with an estimated ejection fraction in the range of 55-60%. Normal left ventricular size. Mild concentric left ventricular hypertrophy. No regional wall motion abnormalities are present. RIGHT VENTRICLE Normal right ventricular size and systolic function. LEFT ATRIUM The left atrial size is upper limits of normal. RIGHT ATRIUM The right atrial size is normal. ATRIAL SEPTUM Normal atrial septal thickness without atrial level shunting by limited color doppler interrogation. AORTA The aortic root and proximal ascending aorta are normal in size on limited imaging. MITRAL VALVE Structurally normal mitral valve. Trace mitral valve regurgitation. AORTIC VALVE Trileaflet aortic valve. Diffuse calcification of the aortic valve. Mild aortic valve stenosis. Aortic valve area is 1.2 cm. Aortic valve mean gradient is 10 mmHg. TRICUSPID VALVE There is estimated ymjkeddw-lj-wnvjcj pulmonary hypertension present (range 60-70 mmHg). Structurally normal tricuspid valve. There is mild tricuspid valve regurgitation. The estimated pulmonary arterial pressure is 67.8 mmHg. PULMONARY VALVE No pulmonary valve regurgitation or stenosis. VESSELS The inferior vena cava is normal in size. PERICARDIUM No pericardial effusion. Anil Lau MD (Electronically Signed) Final Date:06 June 2017 15:40
--- NOTE | 2017-06-06 21:28 | MB ---
cc: Enoch Gold MD DATE OF CONSULT: 06/06/2017 HISTORY OF PRESENT ILLNESS: He is a 76-year-old right handed male with history of hypertension, hypercholesterolemia, bypass and 2 stents, atrial fibrillation. He is on Pradaxa and 81 mg of aspirin a day. Also has a history of angina, followed by Dr. Mejias's group and has a history of arthritis and back pain. Yesterday he was at a class through the [place] and noticed he had blurry vision. He did close one eye and still had blurry vision in each eye. This lasted for approximately 30-35 minutes. After about 20 minutes he noticed the blurry vision was not subsiding so he decided to get one of the nurses in the class. When he got up and walked back to the back of the classroom, he felt very off balance and was staggering as if he were drunk. The room was not spinning at this time although he did have some light-headedness and 30 seconds of chest pain which he has had in the past. In addition to this he has had headaches at night for the last 2 weeks for about 30 minutes and yesterday had a headache on the right side. He no longer has a headache now. He denies any nausea and vomiting. SOCIAL HISTORY: He denies diabetes, myocardial infarction, thyroid disease, lupus, ulcer, pulmonary disease, hepatic disease, renal disease, cancer, seizure, stroke in the past. SOCIAL HISTORY: He is a non-drinker, non-smoker, lives with his girlfriend. FAMILY HISTORY: Positive for cancer. Negative for seizure, stroke. MEDICATIONS AT HOME: He takes Pradaxa 150 mg twice a day, aspirin 81 mg a day, metoprolol and Crestor. MEDICATIONS IN THE HOSPITAL: Continued on aspirin. He is on Lipitor, Pradaxa, metoprolol, insulin, Lovenox and [place]. PHYSICAL EXAMINATION: VITAL SIGNS: Latest blood pressure 148/83, blood pressure was up to 166/95. He is afebrile. Pulse is 61, respiratory rate 18, pulse ox 98% on room air. HEART: Regular rate and rhythm. I did detect a murmur or carotid bruit. NEUROLOGIC: Visual weaver are full. Extraocular movements intact without nystagmus. Face symmetric. Tongue is midline. There is no drift. Strength is 5/5 in the upper and lower extremities bilaterally. DTRs are 2+ in the lower extremities and 1+ in the upper extremities bilaterally. Toes were downgoing bilaterally. There was no ____ clonus. Tone is normal throughout. Pinprick and vibratory sense is intact throughout. He is not ataxic on finger to nose. He has a normal tandem walk. He is no aphasic. He is alert and oriented. His [place] was negative bilaterally. His vision has returned to normal. He no longer has blurry vision. He is able to count fingers on each side. He does wear glasses with bifocals. LABORATORY DATA: CBC is normal. Coags are normal. Chemistry profile is normal. Troponin is negative. LDL cholesterol is 42. IMAGING: MRI of the brain was negative. Carotid ultrasound shows less than 50% stenosis bilaterally. CT of the brain was negative. Chest x-ray was negative. IMPRESSION: Blurry vision possibly from a transient ischemic attack versus hypertensive encephalopathy versus low blood pressure. We will check some orthostatics on him and get some additional blood work including a CRP and sed rate. With the headaches he has been having we defer to the med team and cardiology needs to see him with the chest pain and will also order an MRA of the neck and [place] of [place] and look at the vertebrobasilar area with the difficulty walking that he had. If the MRAs are negative and the lab work is okay and the orthostatic blood pressures are okay, he can be cleared neurologic grey depending on if cardiology needs to see him or not. Dictated by CHARLY Mckinley ADDENDUM: The med team can consider switching him from Pradaxa to Eliquis if TIA is a consideration. MD MAHENDRA Meehan//ray , 01:23 PM , 09:14 PM
--- NOTE | 2017-06-06 23:32 | EKG ---
Date Performed: 06/05/2017 Time Performed: 12:16:05 PTAGE: 76 years EKG: SINUS BRADYCARDIA WITH FREQUENT SUPRAVENTRICULAR PREMATURE COMPLEXES NONSPECIFIC T-WAVE ABN ORMALITY ABNORMAL RHYTHM ECG PREVIOUS TRACING : 03/13/2014 12.13 Compared to prior tracing, previously [place] DOCTOR: Dave Horvath Interpretating Date/Time 06/06/2017 23:30:42
--- NOTE | 2017-06-07 00:09 | EKG ---
Date Performed: 06/05/2017 Time Performed: 20:22:17 PTAGE: 76 years EKG: SUPRAVENTRICULAR RHYTHM NONSPECIFIC ST & T-WAVE ABNORMALITY BORDERLINE ECG PREVIOUS TRACING : 06/05/2017 20.19 Since the prior tracing, there has been no significant [place] DOCTOR: Dave Horvath Interpretating Date/Time 06/07/2017 00:08:20
[2017-06-07] MEDS: METOPROLOL TARTRATE 25 MG TAB PO SCH ×2 (00:20→08:44)
[2017-06-07] MEDS: SODIUM CHLORIDE 0.9% FLUSH 10 ML FLUSH IV FLUSH SCH ×2 (00:20→08:43)
[2017-06-07] MEDS: ATORVASTATIN 10 MG TAB PO SCH (00:20)
[2017-06-07] MEDS: DABIGATRAN ETEXILATE 150 MG CAP PO SCH ×2 (00:21→08:44)
[2017-06-07 04:43] VITALS: BP 125/69; PULSE 72; RESP 18; TEMP 98; O2SAT 99
--- NOTE | 2017-06-07 06:49 | HHI.PR ---
Subjective Remarks Follow-up TIA Objective Vitals Vital Signs Date Time Temp Pulse Resp B/P (MAP) Pulse Ox O2 Delivery O2 Flow Rate FiO2 06/07/17 04:43 98.0 72 18 125/69 (87) 99 06/06/17 23:11 98.0 56 18 169/77 (107) 97 06/06/17 20:35 96.7 70 18 134/81 (98) 97 06/06/17 16:55 138/87 (104) 06/06/17 16:53 159/102 (121) 06/06/17 16:45 98.0 63 18 149/83 (105) 98 06/06/17 12:58 97.9 61 18 148/83 (104) 98 06/06/17 09:53 98.4 64 18 170/77 (108) 98 I/O 06/06/17 06/06/17 06/06/17 06/07/17 06/07/17 06/07/17 07:00 15:00 23:00 07:00 15:00 23:00 Output Total 876 ml Balance -876 ml Output Urine Total 876 ml Result Diagram: 06/06/17 0207 06/06/17 0207 Imaging Last Impressions Neck Magnetic Resonance Angiography 06/06/17 0000 Signed Impressions: Service Date/Time: Tuesday, June 06, 2017 14:08 - CONCLUSION: Carotid artery CTA within normal limits. Joseph House MD Head Magnetic Resonance Angiography 06/06/17 0000 Signed Impressions: Service Date/Time: Tuesday, June 06, 2017 14:08 - CONCLUSION: Brain MRA within normal limits. Joseph House MD Brain MRI 06/06/17 0000 Signed Impressions: Service Date/Time: Tuesday, June 06, 2017 08:03 - CONCLUSION: 1. Moderate T2 hyperintense changes throughout the cerebral white matter characteristic of chronic microvascular ischemic disease. 2. No evidence of acute infarct, hemorrhage, mass or edema. Nikunj Yañez MD Chest X-Ray 06/05/17 1211 Signed Impressions: Service Date/Time: Monday, June 05, 2017 12:26 - CONCLUSION: 1. No active disease. Tevin Vazquez MD Head CT 06/05/17 0000 Signed Impressions: Service Date/Time: Monday, June 05, 2017 13:56 - CONCLUSION: Negative for acute process Андрей Peguero MD FACR Carotid Artery Ultrasound 06/05/17 0000 Signed Impressions: Service Date/Time: Monday, June 05, 2017 21:01 - CONCLUSION: Bilateral calcified carotid plaques with hemodynamic profile characteristic of less than 50%% stenosis. Valerio Judd MD Objective Remarks GENERAL: This is a well-nourished, well-developed male patient, in no apparent distress. SKIN: No rashes, ecchymoses or lesions. Cool and dry. CARDIOVASCULAR: Regular rate and rhythm without murmurs, gallops, or rubs. RESPIRATORY: Clear to auscultation. Breath sounds equal bilaterally. No wheezes , rales, or rhonchi. GASTROINTESTINAL: Abdomen soft, non-tender, nondistended. . No guarding. MUSCULOSKELETAL: Extremities without clubbing, cyanosis, or edema. No joint tenderness, effusion, or edema noted. No calf tenderness. NEUROLOGICAL: Awake and alert. Cranial nerves II through XII intact. Motor and sensory grossly within normal limits. Five out of 5 muscle strength in all muscle groups. Normal speech. Procedures none A/P Problem List: (1) TIA (transient ischemic attack) ICD Code: G45.9 - Transient cerebral ischemic attack, unspecified Status: Acute Assessment and Plan 76yo male with PMHX of CAD s/p CABG, HTN, atrial fibrillation, HLD and GERD who presents to [facility] ED with complaints of blurry vision, headache, unsteady gait and pain behind his eyes x 1 day. TIA. 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 Negative stress test 2 weeks ago -CXR shows no acute disease, images reviewed by me -continuous cardiac monitoring HTN, uncontrolled [place] 180/102 at the [place] earlier today when symptomatic -improved -resume home BB -monitor BP and adjust treatment accordingly Atrial fibrillation Rate controlled -Resume home dose of Pradaxa 150 mg twice a day and metoprolol 12.5 mg twice a day -Continue to monitor heart rate GIB. 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 His PCP will be arranging colonoscopy. DVT prophylaxis -Pradaxa Discharge Planning Discharge pending echocardiogram Problem Qualifiers (1) TIA (transient ischemic attack): Qualified Codes: G45.9 - Transient cerebral ischemic attack, unspecified Arron Levy MD Jun 07, 2017 06:49
[2017-06-07] MEDS: INSULIN ASPART SUPPLEMENTAL SCALE SQ SCH (08:18)
[2017-06-07 08:20] VITALS: BP 162/92; PULSE 73; RESP 20; TEMP 98.2; O2SAT 96
--- NOTE | 2017-06-07 08:40 | HHI.PR ---
Subjective Remarks no new co no shields now or blurrry vision Objective Vital Signs Date Time Temp Pulse Resp B/P (MAP) Pulse Ox O2 Delivery O2 Flow Rate FiO2 06/07/17 08:20 98.2 73 20 162/92 (115) 96 06/07/17 04:43 98.0 72 18 125/69 (87) 99 06/06/17 23:11 98.0 56 18 169/77 (107) 97 06/06/17 20:35 96.7 70 18 134/81 (98) 97 06/06/17 16:55 138/87 (104) 06/06/17 16:53 159/102 (121) 06/06/17 16:45 98.0 63 18 149/83 (105) 98 06/06/17 12:58 97.9 61 18 148/83 (104) 98 06/06/17 09:53 98.4 64 18 170/77 (108) 98 I/O 06/06/17 06/06/17 06/06/17 06/07/17 06/07/17 06/07/17 07:00 15:00 23:00 07:00 15:00 23:00 Output Total 876 ml Balance -876 ml Output Urine Total 876 ml Result Diagram: 06/06/1720606/06/17206 Objective Remarks awake alert counts fingers well nl speech moves well nad Assessment and Plan Assessment and Plan imp sx resolved consider change to eliquis mr/a/a and esr and crp and ldl all ok standing bp all ok ok neurowise to dc if cards does not need to see him defer to med team Enoch Gold MD Jun 07, 2017 08:40
[2017-06-07] MEDS: ATORVASTATIN 20 MG TAB PO SCH (08:44)
[2017-06-07] MEDS: ASPIRIN EC 81 MG TABEC PO SCH (08:44)
--- NOTE | 2017-06-07 10:36 | HHI.DCPOC ---
Discharge Care Plan Diagnosis: (1) TIA (transient ischemic attack) Goals to Promote Your Health * To prevent worsening of your condition and complications * To maintain your health at the optimal level Directions to Meet Your Goals Take your medications as prescribed Follow your dietary instruction Follow activity as directed Keep your appointments as scheduled Take your immunizations and boosters as scheduled If your symptoms worsen call your PCP, if no PCP go to Urgent Care Center or Emergency Room Smoking is Dangerous to Your Health. Avoid second hand smoke Call the 24-hour hour crisis hotline for domestic abuse at Esperanza Gonzalez PA-C Jun 07, 2017 10:36
[2017-06-07 11:38] VITALS: BP 164/93; PULSE 105; RESP 20; O2SAT 96
[2017-06-07] MEDS ORDERED: AMLO5 PO (12:41)
--- NOTE | 2017-06-07 12:44 | HHI.PR ---
Subjective Remarks Follow-up TIA. Patient has no complaints and wants to go home. Discussed with nursing Objective Vitals Vital Signs Date Time Temp Pulse Resp B/P (MAP) Pulse Ox O2 Delivery O2 Flow Rate FiO2 06/07/17 11:38 105 20 164/93 (116) 96 06/07/17 08:45 Room Air 06/07/17 08:20 98.2 73 20 162/92 (115) 96 06/07/17 04:43 98.0 72 18 125/69 (87) 99 06/06/17 23:11 98.0 56 18 169/77 (107) 97 06/06/17 20:35 96.7 70 18 134/81 (98) 97 06/06/17 16:55 138/87 (104) 06/06/17 16:53 159/102 (121) 06/06/17 16:45 98.0 63 18 149/83 (105) 98 06/06/17 12:58 97.9 61 18 148/83 (104) 98 I/O 06/06/17 06/06/17 06/06/17 06/07/17 06/07/17 06/07/17 07:00 15:00 23:00 07:00 15:00 23:00 Output Total 876 ml Balance -876 ml Output Urine Total 876 ml Result Diagram: 06/06/17 0207 06/06/17 0207 Imaging Last Impressions Neck Magnetic Resonance Angiography 06/06/17 0000 Signed Impressions: Service Date/Time: Tuesday, June 06, 2017 14:08 - CONCLUSION: Carotid artery CTA within normal limits. Joseph House MD Head Magnetic Resonance Angiography 06/06/17 0000 Signed Impressions: Service Date/Time: Tuesday, June 06, 2017 14:08 - CONCLUSION: Brain MRA within normal limits. Joseph House MD Brain MRI 06/06/17 0000 Signed Impressions: Service Date/Time: Tuesday, June 06, 2017 08:03 - CONCLUSION: 1. Moderate T2 hyperintense changes throughout the cerebral white matter characteristic of chronic microvascular ischemic disease. 2. No evidence of acute infarct, hemorrhage, mass or edema. Nikunj Yañez MD Chest X-Ray 06/05/17 1211 Signed Impressions: Service Date/Time: Monday, June 05, 2017 12:26 - CONCLUSION: 1. No active disease. Tevin Vazquez MD Head CT 06/05/17 0000 Signed Impressions: Service Date/Time: Monday, June 05, 2017 13:56 - CONCLUSION: Negative for acute process Андрей Peguero MD FACR Carotid Artery Ultrasound 06/05/17 0000 Signed Impressions: Service Date/Time: Monday, June 05, 2017 21:01 - CONCLUSION: Bilateral calcified carotid plaques with hemodynamic profile characteristic of less than 50%% stenosis. Valerio Judd MD Objective Remarks GENERAL: This is a well-nourished, well-developed male patient, in no apparent distress. SKIN: No rashes, ecchymoses or lesions. Cool and dry. CARDIOVASCULAR: Regular rate and rhythm without murmurs, gallops, or rubs. RESPIRATORY: Clear to auscultation. Breath sounds equal bilaterally. No wheezes , rales, or rhonchi. GASTROINTESTINAL: Abdomen soft, non-tender, nondistended. . No guarding. MUSCULOSKELETAL: Extremities without clubbing, cyanosis, or edema. No joint tenderness, effusion, or edema noted. No calf tenderness. NEUROLOGICAL: Awake and alert. Cranial nerves II through XII intact. Motor and sensory grossly within normal limits. Five out of 5 muscle strength in all muscle groups. Normal speech. Procedures none A/P Problem List: (1) TIA (transient ischemic attack) ICD Code: G45.9 - Transient cerebral ischemic attack, unspecified Status: Acute Assessment and Plan 76yo male with PMHX of CAD s/p CABG, HTN, atrial fibrillation, HLD and GERD who presents to [facility] ED with complaints of blurry vision, headache, unsteady gait and pain behind his eyes x 1 day. TIA. He adds that he was off Pradaxa for 1 week just restarted it 3 days [employer] after a bout of hematochezia -CT brain for acute findings, images reviewed by me -Consulted stroke navigator -Continuous cardiac monitoring -Aspirin and statin therapy daily -Neuro checks -PT/OT eval/tx -blood sugar monitoring -Risk factor modification LDL 43 A1c 5.8 -Holter monitor -2-D echocardiogram noted Pulmonary hypertension. Outpatient follow-up with pulmonary chest pain likely related to anxiety Hx of CAD s/p CABG -EKG shows sinus bradycardia with occasional PVCs -Ruled out for [place]. Negative stress test 2 weeks ago -CXR shows no acute disease, images reviewed by me -continuous cardiac monitoring HTN, uncontrolled BP 180/102 at the PA -improved -resume home BB. I will add Norvasc -monitor BP and adjust treatment accordingly Atrial fibrillation Rate controlled -Resume home dose of Pradaxa 150 mg twice a day and metoprolol 12.5 mg twice a day -Continue to monitor heart rate GIB. He was off Pradaxa for 1 week just restarted it 3 days [employer] after a bout of hematochezia was seen in the ED and told he had hemorrhoidal bleeding. His PCP will be arranging colonoscopy. DVT prophylaxis -Pradaxa Discharge Planning Discharge patient to home Condition on discharge: Improved Regular Diet as tolerated Ad Irlanda activity Rx written: Norvas Follow-up with primary care physician and pulmonary Patient will return Holter monitor aware results not available Problem Qualifiers (1) TIA (transient ischemic attack): Qualified Codes: G45.9 - Transient cerebral ischemic attack, unspecified Arron Levy MD Jun 07, 2017 12:44
[2017-06-07] MEDS ORDERED: amLODIPine BESYLATE 5 MG TAB PO SCH (13:00)
--- NOTE | 2017-06-08 21:09 | HM ---
Date Performed: 06/06/2017 Time Performed: 17:14:00 HOOKUP DATE: 06/06/17 05:14:00 PM Sat ANALYSIS START TIME: 06/06/2017 5:19:00 PM ANALYSIS END TIME: 06/07/2017 11:56:00 AM PATIENT AGE: 76 PATIENT HEIGHT PATIENT WEIGHT DRUG LIST PATIENT DIAGNOSIS: HIGH BP TEST NARRATIVE: The patient's average heart rate was 72 BPM. Heart rates greater than 120 B PM were noted 3% of the time. Heart rates less than 50 BPM were noted < 1% of the time. 4 pauses exceeding 2.0 seconds were noted. The longest pause of 2.0 seconds occurred at 03:55:01 AM Sun. 1505 ventricular ectopics, which represented 2% of the total beat count, were noted. The highest ve ntricular ectopic frequency occurred from 10:00 AM to 11:00 AM Sun. During this time 300 VE(s) occur red. Ventricular ectopics were observed as 1431 isolated beat(s) and as 37 couplet(s). No runs were noted. Some of the ventricular beats occurred in bigeminal cycles. No supraventricular ectopics were noted. Multiple episodes of ST depression (defined as -1.0 mm or more) were noted in chann el 1. The maximum depression of -3.3 mm occurred at 11:32:58 AM Sun. Multiple episodes of ST depres long (defined as -1.0 mm or more) were noted in channel 2. The maximum depression of -4.7 mm occurr ed at 11:35:02 AM Sun. Multiple episodes of ST depression (defined as -1.0 mm or more) were noted i n channel 3. The maximum depression of -3.9 mm occurred at 11:39:11 AM Sun. NO DIARY RETURNED TEST INTERPRETATION: Patient undergoes a holter monitor for unstated reasons. No diary is provid ed. Holter monitor is difficult to interpret because of low amplitude P waves. Patient has mostly Sin us rhythm with fairly marked first degree AV block. There are episodes of PVCs and couplets. There are episode s of what appears to be paroxysmal supraventricular tachycardia with 3:1 conduction. Patient has sinu s pauses. The maximum HR is 158 bpm and it is probably a 2:1 atrial flutter, although there's a lot o f artifact in the tracing. No significant bradycardias are noted Conclusions: Abnormal holter monito r with episodes of supraventricular tachycardia. The more sustained SVT at 154-158bpm appears to be 2 :1 atrial flutter. AV node conduction system disease with first degree AV block and blocked PACs Fabienne ef sinus pauses, but no significant kiarra arrhythmias noted PVCs and couplets but no definite ventric ular tachycardia No diary provided Consider repeat tracing or alternatively telemetry evaluation as P wave is low amplitude, making it difficult on holter strips to definitively determine other arrhythm ias but the atrial flutter at 1139am is pretty typical. Signed by : Erna Sheikh
== END 2017-06-07 13:30 | disposition home or self-care (01) ==
LOC: NEDAMB 11:54 → NEDA 15:26 → NEPFCDU 21:50
PROVIDERS: ADMIT Internal Medicine; ATTEND Internal Medicine
DX: G45.9 Transient cerebral ischemic attack, unspecified (principal); R07.9 Chest pain, unspecified; I25.119 Atherosclerotic heart disease of native coronary artery with unspecified angina pectoris; I10 Essential (primary) hypertension; E78.00 Pure hypercholesterolemia, unspecified; I27.20 Pulmonary hypertension, unspecified; I49.3 Ventricular premature depolarization; R00.1 Bradycardia, unspecified; R94.31 Abnormal electrocardiogram [ECG] [EKG]; I44.0 Atrioventricular block, first degree; I47.1 Supraventricular tachycardia; I48.91 Unspecified atrial fibrillation; K21.9 Gastro-esophageal reflux disease without esophagitis; H91.93 Unspecified hearing loss, bilateral; M19.90 Unspecified osteoarthritis, unspecified site; Z95.1 Presence of aortocoronary bypass graft; Z95.5 Presence of coronary angioplasty implant and graft; Z79.82 Long term (current) use of aspirin; Z79.02 Long term (current) use of antithrombotics/antiplatelets; Z79.899 Other long term (current) drug therapy
CPT/HCPCS: 70450; 70544; 70548; 70551; 71046; 80048; 80061; 80076; 82550; 82948; 83036; 83690; 83735; 84484; 85025; 85610; 85652; 85730; 86140; 93005; 93225; 93226; 93306; 93880; 97161; 97166; 99285; A9579; G0378; G8987; G8988; G8989; J1650